=== PATIENT | male | born 1985 | race Caucasian/White ===

== ENCOUNTER 2025-06-06 00:28 | Emergency (ER) | payer OTHER ==
[2025-06-06 01:02] LABS: GLUCOSE,URINE NEGATIVE (NEGATIVE); OCCULT BLOOD,URINE TRACE-INTACT (NEGATIVE)
[2025-06-06 01:26] LABS: APPEARANCE,URINE CLEAR
[2025-06-06 01:27] LABS: EPITHELIAL CELLS,URINE RARE (NONE-FEW)
[2025-06-06] MEDS: Acetaminophen/HYDROcodone 325-5 MG Tab PO ONE (01:59)
[2025-06-06] MEDS: Lidocaine 1% PF 2 ML SDV INJECT ONE (02:00)
[2025-06-06 02:32] LABS: C. TRACHOMATIS BY PCR NOT DETECTED; N. GONORRHOEAE BY PCR NOT DETECTED
== END 2025-06-06 02:10 | disposition home or self-care (01) ==
LOC: MW.ED 00:28
DX: A64 Unspecified sexually transmitted disease (principal); Z79.899 Other long term (current) drug therapy; Z46.6 Encounter for fitting and adjustment of urinary device
CPT/HCPCS: 81001; 87086; 87491; 87591; 96372; 99283; A9270; J0696; J2003